=== PATIENT | male | born 1975 | race Caucasian/White ===

== ENCOUNTER 2022-03-28 12:35 | Emergency (ER) | payer OTHER ==
[2022-03-28 14:23] LABS: BASOPHIL 0.7 % (0-2); EOSINOPHIL 5.8 % (0-5); HCT 33.9 % (42.0-52.0); HGB 10.9 g/dl (13.2-18.0); LYMPHOCYTE 27.9 % (15-48); MCH 25.3 pg (25.0-31.0); MCHC 32.2 g/dL (32.0-36.0); MCV 78.7 fL (78.0-100.0); MONOCYTE 9.3 % (0-12); MPV 9.1 fL (6.0-9.5); NRBC 0; PLT 324 K/uL (150-400); RBC 4.31 M/uL (4.70-6.00); RDW 15.1 % (11.5-14.0); WBC 7.3 K/uL (4.0-10.5)
[2022-03-28 14:36] LABS: INR 1.08 (0.9-1.2); PROTHROMBIN TIME 13.4 SECONDS (11.8-13.4); PTT 29.5 SECONDS (24.4-34.7)
[2022-03-28 14:55] LABS: ALBUMIN 3.6 g/dL (3.4-5.0); BILIRUBIN - TOTAL 0.2 mg/dL (0.2-1.0); GLOBULIN (CALCULATION) 2.9 g/dL; POTASSIUM 4.2 mmol/L (3.5-5.1); TOTAL PROTEIN 6.5 g/dL (6.4-8.2)
== END 2022-03-28 16:03 | disposition left against medical advice (07) ==
LOC: FER 12:35
PROVIDERS: Emergency Medicine
DX: D64.9 Anemia, unspecified (principal); I10 Essential (primary) hypertension; Z53.9 Procedure and treatment not carried out, unspecified reason
CPT/HCPCS: 36415; 36600; 70450; 80053; 80061; 82550; 82803; 84484; 85025; 85610; 85730; 93005